=== PATIENT | female | born 1945 | race African-American/Black ===

== ENCOUNTER → 2021-04-25 | Outpatient (CLI) | payer MEDICARE ==
--- NOTE | 2021-04-25 13:56 | RAD ---
EXAM: PET/CT skull base to thigh. HISTORY: Pulmonary nodule. TECHNIQUE: CT of the body from the skull base to thighs was performed for the purposes of attenuation correction. 13 mCi F-18 fluorodeoxyglucose were administered intravenously. Blood glucose level at t he time of administration was 123 mg/dL. After 40 minutes uptake, positron emission tomography of the body was performed. The PET and CT data were fused and interpreted in combination on a dedicated wor kstation. Reported standard uptake values (SUV) are the maximum SUV within a lesional volumetric lucho on of interest. SUV normalization is via body mass. COMPARISON: None. FINDINGS: Mediastinal blood pool SUV reference value: 4.4. There is intense increased radiotracer activity within SUV of 12.6 associated with a 3.3 cm right sup rahilar mass. This is not clearly separable from adjacent right hilar and paratracheal lymph nodes. T here is heterogeneous activity throughout the axial and appendicular skeleton, bowel and liver. The CT portion of the exam demonstrates a right suprahilar mass containing calcifications measuring a pproximately 3.3 cm in maximum dimension and associated with near-complete right upper lobe collapse. There are prominent right paratracheal and hilar lymph nodes which is not clearly separable from the aforementioned lesion. There are postoperative changes involving the stomach. No hepatic lesion is s een. The gallbladder is absent. No pancreatic or splenic lesion is seen. There is no suspicious adren al gland or renal lesion. There is no hydronephrosis. There is no appendicitis. There is no bowel obstruction. There are calcified uterine fibroids. The bl adder is nearly empty. There is a small fat-containing umbilical hernia. The visualized brain are unr emarkable. There is no neck lymphadenopathy. There is a heterogeneous enlarged left greater than righ t thyroid lobe containing multiple nodules. This results in leftward shift of the trachea. There are degenerative changes throughout the spine. There is heterogeneous bone density. There is no acute or suspicious osseous finding. IMPRESSION: 1. Intense radiotracer activity within SUV of 12.6 associated with a 3.3 cm right suprahilar mass. Th is favors primary malignancy. This is not clearly separable from adjacent paratracheal and hilar lymp h nodes. 2. Heterogeneous activity throughout the colon, osseous structures and liver. This can be physiologic . No additional focal activity is seen to suggest neoplasm. 3. Heterogeneous enlarged thyroid containing multiple nodules. This demonstrates no significant incre ased radiotracer activity above the blood pool. Correlate with thyroid sonography. 4. Please refer to the above report for additional findings regarding the non-PET portion of the exam . Electronically signed by: Arcelia Mcallister MD (04/25/2021 1:53 PM) [id number]
== END ==
LOC: PETSC 11:30
PROVIDERS: ATTEND Pediatrics
DX: R91.8 Other nonspecific abnormal finding of lung field (principal); R91.1 Solitary pulmonary nodule; E04.2 Nontoxic multinodular goiter; J98.19 Other pulmonary collapse; D25.9 Leiomyoma of uterus, unspecified; K42.9 Umbilical hernia without obstruction or gangrene; M47.819 Spondylosis without myelopathy or radiculopathy, site unspecified; Z90.49 Acquired absence of other specified parts of digestive tract
CPT/HCPCS: 78815; A9552